=== PATIENT | female | born 1995 | race Native Hawaiian/Other Pacific Islander ===

== ENCOUNTER 2018-11-26 21:04 | Emergency (ER) | payer OTHER ==
[~2018-11-26] VITALS: Ht 160 cm; Wt 87.5 kg
[2018-11-26 21:20] VITALS: BP 125/71; TEMP 100.9
== END 2018-11-26 22:11 | disposition home or self-care (01) ==
LOC: ED 21:04
DX: R50.9 Fever, unspecified (principal); R05 Cough
CPT/HCPCS: 87651; 99283

== ENCOUNTER 2021-11-17 11:19 | Emergency (ER) | payer OTHER ==
[~2021-11-17] VITALS: Ht 160 cm; Wt 103.0 kg
[2021-11-17 11:28] VITALS: TEMP 97.3
[2021-11-17 13:48] VITALS: BP 128/70
== END 2021-11-17 13:49 | disposition home or self-care (01) ==
LOC: ED 11:19
DX: M27.3 Alveolitis of jaws (principal)
CPT/HCPCS: 96372; 99281; 99283; J1885

== ENCOUNTER 2022-07-07 09:32 | Emergency (ER) | payer OTHER ==
[~2022-07-07] VITALS: Ht 160 cm; Wt 108.9 kg
[2022-07-07 09:37] VITALS: BP 145/74; TEMP 98
== END 2022-07-07 10:22 | disposition home or self-care (01) ==
LOC: ED 09:32
DX: J02.9 Acute pharyngitis, unspecified (principal)
CPT/HCPCS: 87651; 99283